=== PATIENT | male | born 1935 | race Caucasian/White ===

== ENCOUNTER 2017-04-17 17:03 | Observation (INO) ==
[2017-04-17] MEDS ORDERED: Aspirin 81 MG TAB.CHEW PO ONE (17:05)
--- NOTE | 2017-04-17 17:16 | Emergency Department Note ---
Disposition Clinical Impression: Chest pain Disposition: Admitted As Inpatient Condition: Good Forms: ED Satisfaction Letter Time of Disposition: 18:49 Chest Pain HPI - General Chief Complaint: ED Chest Pain Stated Complaint: Chest Pain Time Seen by Provider: 04/17/17 17:04 Source: patient, EMS Mode of arrival: EMS Limitations: no limitations Vital Signs Reviewed: Yes Nursing Notes Reviewed: Yes - History of Present Illness HPI Narrative: Patient presents to the ED as a transfer from the [place] for chest pain. Patient has a history of coronary artery disease and stents 3 with the last in 2006. Reports that for the last several months he has been having intermittent exertional and at rest chest pain. Was at a public services [employer] office today for pulmonary function testing, was on oxygen and when he got up to ambulate. He had a very intense, heavy pressure in the middle of his chest and got more short of breath. States this is consistent with his previous heart problems. Pain has been exertional and does go away with rest, but also happens at rest. Some diaphoresis, lightheaded, nausea. 2 baby aspirin were given at the [place] urgent care. EKG was read as normal. An initial troponin was 0.00. was given some nitro and it helped. pain 3/10 currently. - Related Data Allergies Allergy/AdvReac Type Severity Reaction Status Date / Time gabapentin Allergy See Verified 04/17/17 17:16 Comments niacin Allergy Hives Verified 04/17/17 17:16 Sulfa (Sulfonamide Allergy Rash Verified 04/17/17 17:16 Antibiotics) atorvastatin AdvReac See Verified 04/17/17 17:16 Comments fluvastatin AdvReac See Verified 04/17/17 17:16 Comments morphine AdvReac See Verified 04/17/17 17:16 Comments pravastatin AdvReac See Verified 04/17/17 17:16 Comments simvastatin AdvReac See Verified 04/17/17 17:16 Comments All systems ED: reviewed and negative except as stated. Constitutional: Reports: chills. Denies: fever Eyes: Denies: vision change Cardiovascular: Reports: chest pain, dyspnea on exertion. Denies: edema Respiratory: Reports: dyspnea Gastrointestinal: Denies: vomiting Musculoskeletal: Denies: back pain Physical Exam - General Limitations: no limitations General appearance: alert, in no apparent distress - Head Head exam: atraumatic, normocephalic, normal inspection - Eye Eye exam: Present: normal appearance, PERRL, EOMI - Chest Chest inspection: Present: normal inspection, symmetric chest wall rise - Respiratory Respiratory exam: Present: normal lung sounds bilaterally - Cardiovascular Cardiovascular exam: Present: regular rate, normal rhythm, normal heart sounds - Abdominal Exam Abdominal exam: Present: soft, Non-Tender. Absent: tenderness, distention, guarding, rebound, rigidity - Extremities Exam Extremities exam: Present: normal inspection, full ROM. Absent: tenderness, pedal edema - Neurological Exam Neurological exam: Present: alert, oriented X3, CN II-XII intact (stable, does have some facial droop from previous stroke. ), other (5/5 strength BUE/BLE) - Psychiatric Psychiatric exam: Present: normal affect, normal mood - Skin Skin exam: Present: warm, dry, intact, normal color Course Course Narrative: Patient with history of coronary artery disease, presenting for exertional chest pain. Initial troponin negative at [place]. Will repeat troponin and EKG here and admit - Reevaluation(s) Reevaluation #1: Radiology read. Chest x-ray here as possible pneumonia, clinically patient does not have pneumonia. Does have pulmonary fibrosis. Chest x-ray from the [place] when compared to his previous showed stable appearance. Patient actually refused antibiotics. He states that he is been placed been to many times for what looks like pneumonia on chest x-ray. He has been admitted for a chest pain rule out. Vital Signs Temperature 98 F 04/17/17 17:04 Pulse Rate 76 04/17/17 17:04 Respiratory Rate 20 04/17/17 17:04 Blood Pressure 166/96 04/17/17 17:04 O2 Sat by Pulse Oximetry 97 04/17/17 17:04 Temperature 98 F 04/17/17 17:04 Pulse Rate 80 04/17/17 18:28 Respiratory Rate 20 04/17/17 18:28 Blood Pressure 159/94 04/17/17 18:28 O2 Sat by Pulse Oximetry 95 04/17/17 18:28 Oxygen Delivery Oxygen Delivery Nasal Cannula Chest Pain - Medical Records Medical records reviewed: Yes I reviewed the patient's medical records. - Lab Data Lab results reviewed: Yes I reviewed the patient's lab results. Lab Results 04/17/17 Range/Units 17:34 Troponin I 0.00 (0-0.03) ng/mL - Radiology Data Radiology results reviewed: Yes I reviewed the patient's radiology results. Chest X-Ray 04/17/17 17:05 IMPRESSION: Left lower lobe opacities suspicious for pneumonia. D/ / 04/17/2017 17:39:44 Claude Celeste MD / wanda Interpreting Provider: Claude Celeste MD - EKG Data EKG attestation: Yes I reviewed and interpreted this EKG. EKG results narrative: Sinus rhythm, rate 92, para 192, QRS 108, QTC 46, normal axis, nonspecific T- wave changes that are unchanged from previous S.B.A.R. - S.B.A.R. Situation: Demographics, MOA Background: Presenting Complaint, Relevant PMH, Meds, & Allergies Assessment: Vital Signs, Course and respsone to treatment, Exam Concerns, Patient/Family Expectation, Pertinant Lab Results, Outstanding Labs Recommendation: Barrier(s) to disposition, Recommendation based on pending studies, treatments, or consults S.B.A.R. Report Given to: Dr. Epstein accepts S.B.A.R. Repor Time: 18:48 Attestation Statement - Attestation Attestation: I examined this patient and my medical decision-making was reviewed with the Resident Physician. I agree with the documented findings, disposition and treatment plan as described except to the extent set forth below. Patient to the ED with a chief complaint of chest pain. Patient is an avid smoker and episodes for a couple months. Today he had an episode where he felt like something was pushing on the center of his chest. Patient is initially coronary disease with stents placed 10 years ago. Feels better after nitroglycerin. Exam shows him in no acute distress lying in bed. Lungs clear. Plan. Cardiac workup and observation.
[2017-04-17] MEDS ORDERED: Nitroglycerin 0.4 MG TAB.SUBL SL PRN (17:23)
[2017-04-17] MEDS ORDERED: Azithromycin 500 MG in D5% in Water 250 ML IVPB ONE (18:19)
--- NOTE | 2017-04-17 19:54 | Internal Med History&Physical ---
Date of Encounter: 04/17/17 Time of Encounter: 19:53 Assessment and Plan (1) Angina pectoris Current visit: Yes Status: Acute in the setting of exertion and hypoxia from lung disease known CAD with 3 stents, last in 2006 - NG prn - ASA - Can't give statin due to allergies - Start metoprolol PO (unsure why he not on beta neal, no history of bradycardia or allergy) - Chec serial EKG/troponin, if LA, then start heparin gtt, give Plavix load - Cardiology consult - NPO in case cardiology recommends cath vs stress test - Check TTE (2) CAD (coronary artery disease) Current visit: Yes Status: Acute as above Qualifiers: Coronary Disease-Associated Artery/Lesion type: [place] artery [place] vs. transplanted heart: [place] heart Associated angina: with stable angina Qualified Code(s): I25.118 - Atherosclerotic heart disease of [place] coronary artery with other forms of angina pectoris (3) Pulmonary fibrosis Current visit: Yes Status: Acute Cont O2 by nc during day, BiPAP 10/6 at night Full code for now, will discuss with family regarding goals of care CXR opacity is likely pulm fibrosis. no S/S of PNA wven though he has leukocytosis - Recheck CBC in AM (4) HTN (hypertension) Current visit: Yes Status: Acute Hold Losartan due t hyperkalemia tonight - Recheck K in AM, and if normal, resume losartan Qualifiers: Hypertension type: essential hypertension Qualified Code(s): I10 - Essential (primary) hypertension (5) Diabetes mellitus Current visit: Yes Status: Acute controlled with TLC at baseline - check HbA1C Qualifiers: Diabetes mellitus type: type 2 Diabetes mellitus complication status: without complication Diabetes mellitus nursing home insulin use: without nursing home use Qualified Code(s): E11.9 - Type 2 diabetes mellitus without complications (6) Leukocytosis Current visit: Yes Status: Acute no s/s of infection - recheck CBC and clinically monitor Qualifiers: Leukocytosis type: other Qualified Code(s): D72.828 - Other elevated white blood cell count Internal Medicine - H&P: HPI Chief complaint: chest pain Admitted From: Emergency Dept Plans for Post Hospital Care: Home History of present illness: 82M came from [place], with CAD s/p PCI last stent in 2006 and oxygen dependent pulm fibrosis has been having anginal episodes for 2 months (14 episodes). Anterior chest pressure, radiating to left arm, with exertion, resolves by NG, lasts for 5 min. Of note, he is having worsening pulmonary function over the last 8 months , and GARIBAY is worsening. When he walks to the bathroom, O2 drops to 80's, HR increases and he develops chest pressure. Chronic cough with clear sputum. Some chills. Headache, nausea. Rhinorrhea. A 10 -point ROS is otherwise negative. PMH/PSH: - CAD, 3 stents, last in 2006 - CVA 2014 - DM2-controlled with TLC - ALAN - Pulm fibrosis, daytime O2 by [place], night time BiPAP 05/25 - Psoriatic arthritis on Enbrel - Hx LGIB - HTN - Gout - Partial colectomy SH: Lifelong non-smoker. No alcohol or drugs. FH: Mother-lymphoma Past Med Surg Social Fam HX - Past Medical History Medical history: cancer, coronary artery disease, CVA, diabetes, GERD, GI bleed , hyperlipidemia, hypertension, renal disease, TIA Psychiatric history: depression, other - Social History Smoking Status: Never smoker Smokeless Tobacco Status: No Alcohol use: none Drug use: none - Family History Father Name: Nolan Mireles Living Status: Age at : 66 Cause of : war wounds Internal Medicine - H&P: Meds Aspirin Enteric Coated [Aspirin EC] 81 mg PO DAILY 04/17/17 [History] Budesonide Neb [Pulmicort Neb] 0.5 mg IH DAILY 04/17/17 [History] Cholecalciferol (Vitamin D3) [Vitamin D3] 10,000 unit PO DAILY 04/17/17 [History ] Cinnamon Bark [Cinnamon] 500 mg PO DAILY 04/17/17 [History] Clopidogrel [Plavix] 75 mg PO DAILY 04/17/17 [History] Escitalopram [Lexapro] 20 mg PO DAILY 04/17/17 [History] Etanercept [Enbrel] 50 mg SQ QWEEK 04/17/17 [History] Famotidine [Pepcid] 20 mg PO BID 04/17/17 [History] Latanoprost [Xalatan] 1 drop LEFT EYE HS 04/17/17 [History] Losartan Potassium [Cozaar] 100 mg PO DAILY 04/17/17 [History] Magnesium Oxide [Magnesium] 400 mg PO DAILY 04/17/17 [History] Mometasone Furoate [Asmanex] 1 puff IH BID 04/17/17 [History] Ubidecarenone [Coenzyme Q10] 100 mg PO DAILY 04/17/17 [History] 3 Allergy/AdvReac Type Severity Reaction Status Date / Time gabapentin Allergy See Verified 04/17/17 17:16 Comments niacin Allergy Hives Verified 04/17/17 17:16 Sulfa (Sulfonamide Allergy Rash Verified 04/17/17 17:16 Antibiotics) atorvastatin AdvReac See Verified 04/17/17 17:16 Comments fluvastatin AdvReac See Verified 04/17/17 17:16 Comments morphine AdvReac See Verified 04/17/17 17:16 Comments pravastatin AdvReac See Verified 04/17/17 17:16 Comments simvastatin AdvReac See Verified 04/17/17 17:16 Comments All Systems PM: A 10-system review of systems was performed and is negative for pertinent findings except as documented above in the HPI. - Constitutional Vitals: Temp Pulse Resp BP Pulse Ox 98 F 80 20 159/94 95 04/17/17 17:04 04/17/17 18:28 04/17/17 18:28 04/17/17 18:28 04/17/17 18:28 General appearance: Present: A&O X 3, pleasant, no acute distress - Head Head exam: Present: atraumatic, normocephalic - Eye Eye exam: Present: PERRL, conjuntiva pink, sclera anicteric Pupils: Present: PERRL - Neck Neck exam general surgery: Present: supple, trachea midline. Absent: nuchal rigidity - Respiratory Respiratory exam: Present: rales (coarse bilateral velcro crackles). Absent: accessory muscle use, rhonchi, wheezes - Cardiovascular Cardiovascular exam: Present: RRR, +S1, +S2. Absent: diastolic murmur, gallop, rubs, systolic murmur - GI/Abdominal GI/Abdominal exam: Present: hernia, normal bowel sounds, soft, no peritoneal signs. Absent: distended, guarding, rebound, tenderness - Extremities Exam Extremities exam: Present: warm, radial pulses palpable and symmetrical. Absent : calf tenderness, cyanotic, pedal edema - Neurological Exam Neurological exam: Present: CN II-XII intact, oriented X3, no focal deficits. Absent: facial droop, speech deficit - Skin Skin exam: Present: dry, intact. Absent: rash Internal Med - H&P Results - EKG Data -: EKG Interpreted by Myself (Sinus 93 bpm, inferior Q waves, poor anterior R wave progression, QTc 462) - Impressions CXR: LLL opacity > RLL
[2017-04-17] MEDS ORDERED: Ondansetron 4 MG/2 ML VIAL IVP PRN (22:19)
[2017-04-17] MEDS ORDERED: GuaiFENesin Liq 200 MG/10 ML UDC PO PRN (22:46)
[2017-04-18 01:28] LABS: Basophils # 0.1 K/mcL (0.0-0.2); Basophils % 1.1 %; Eosinophils # 0.2 K/mcL (0.0-0.6); Eosinophils % 3.7 %; Hematocrit 46.1 % (37.5-50.1); Hemoglobin 15.2 g/dL (12.9-16.9); Immature Granulocytes % 0.5 % (0-4); Lymphocytes # 1.3 K/mcL (0.6-4.6); Lymphocytes % 22.6 %; Mean Corpuscular Hemoglobin 29.7 pg (28.0-33.3); Mean Corpuscular Volume 90.2 fL (83.0-100.0); Mean Platelet Volume 10.9 fL (9.4-12.4); Monocytes # 0.7 K/mcL (0.0-1.3); Monocytes % 12.5 %; Neutrophils # 3.4 K/mcL (1.6-8.9); Platelet Count 149 K/mcL (140-400); Red Blood Count 5.11 M/mcL (4.19-5.50); Red Cell Distribution Width 13.3 % (11.5-14.5); Segmented Neutrophils % 59.6 %
[2017-04-18 01:34] LABS: INR 1.1; Prothrombin Time 11.6 Seconds (9.4-12.1)
[2017-04-18 01:41] LABS: Hemoglobin A1C 5.5 %
[2017-04-18 01:46] LABS: Alanine Aminotransferase 14 Units/L (0-55); Albumin 3.3 g/dL (3.5-5.0); Albumin/Globulin Ratio 0.8 (1.1-2.2); Alkaline Phosphatase 55 Units/L (38-126); Aspartate Amino Transferase 16 Units/L (5-34); BUN/Creatinine Ratio 16 (6-26); Bilirubin,Total 0.7 mg/dL (0.2-1.2); Blood Urea Nitrogen 16 mg/dL (8-26); Carbon Dioxide 27 mEq/L (19-29); Chloride 106 mEq/L (98-109); Globulin 3.9 g/dL (2.4-3.5); Glucose 132 mg/dL (70-99); Osmolality,Calculated 291 (280-300); Potassium 3.8 mEq/L (3.5-4.5); Sodium 139 mEq/L (136-145); Total Protein 7.2 g/dL (6.0-8.3); eGFR For African Americans > 60 (> 60); eGFR For Non-African Americans > 60 (> 60)
[2017-04-18] MEDS: *HR* Heparin 5,000 UNIT/ML VIAL SQ SCH ×2 (05:09→15:50)
[2017-04-18] MEDS ORDERED: Magnesium Oxide 400 MG TABLET PO SCH (09:00)
[2017-04-18] MEDS ORDERED: Coenzyme Q10 100 MG PO SCH (09:00)
[2017-04-18] MEDS ORDERED: NON-FORMULARY MEDICATION 1 EACH EACH (Losartan Potassium [Cozaar] 100 MG) PO SCH (09:00)
[2017-04-18] MEDS ORDERED: Aspirin Enteric Coated 81 MG Tablet PO SCH (09:00)
[2017-04-18] MEDS ORDERED: Budesonide Neb 0.5 MG/2 ML IH SCH (09:00)
[2017-04-18] MEDS: Famotidine 20 MG TABLET PO SCH ×2 (09:42→15:53)
--- NOTE | 2017-04-18 09:53 | Internal Med Progress Note ---
Date of Encounter: 04/18/17 Time of Encounter: 09:00 - Assessment and plan (1) Chest pain Current Visit: Yes Status: Acute Assessment and plan: Patient has right-sided stabbing chest pain. Continue nothing by mouth status. Patient will undergo a pharmacological stress test today. Cardiac enzymes have been negative 3. EKG without acute ST-T changes that suggest unstable angina. Cancel cardiology consult for now. If the stress test is abnormal, will consult cardiology for a left heart catheterization. Qualifiers: Chest pain type: intercostal pain Qualified Code(s): R07.82 - Intercostal pain (2) COPD (chronic obstructive pulmonary disease) Current Visit: Yes Status: Chronic Assessment and plan: Continue breathing treatments. Stable. Qualifiers: COPD type: emphysema Emphysema type: unspecified Qualified Code(s): J43.9 - Emphysema, unspecified (3) Respiratory failure Current Visit: Yes Status: Chronic Assessment and plan: Continue oxygen supplementation. Qualifiers: Chronicity: chronic Respiratory failure complication: hypoxia Qualified Code(s): J96.11 - Chronic respiratory failure with hypoxia (4) CAD (coronary artery disease) Current Visit: Yes Status: Chronic Assessment and plan: As mentioned above, pharmacological stress test today. Continue beta neal, aspirin and Plavix. Hold statins due to allergies. Qualifiers: Coronary Disease-Associated Artery/Lesion type: [place] artery [place] vs. transplanted heart: [place] heart Associated angina: with unspecified angina Qualified Code(s): I25.119 - Atherosclerotic heart disease of [place] coronary artery with unspecified angina pectoris (5) Diabetes mellitus Current Visit: Yes Status: Chronic Assessment and plan: Continue home medications. Controlled blood sugars. On a sliding scale insulin. Qualifiers: Diabetes mellitus type: type 2 Diabetes mellitus complication status: with circulatory complication Diabetes mellitus complication detail: with other circulatory complications Diabetes mellitus shelter insulin use: without shelter use Qualified Code(s): E11.59 - Type 2 diabetes mellitus with other circulatory complications (6) HTN (hypertension) Current Visit: Yes Status: Chronic Assessment and plan: Controlled blood pressure. Continue current medications. Qualifiers: Hypertension type: essential hypertension Qualified Code(s): I10 - Essential (primary) hypertension (7) Pulmonary fibrosis Current Visit: No Status: Chronic - Subjective Interval history: Patient has been having on and off chest pain at rest over the past month. Yesterday, he went to [facility] for a breathing test. While he was doing the 6 minute walk test, the patient experienced sharp chest pain on the right side of his chest without radiation. This was relieved with nitroglycerin. Hence, he was transferred to [facility] for further evaluation. The patient states that he has had 4 stents in his heart. The last one was in 2006. He also reports shortness of breath with exertion. He repeats mild cough and wheezing. Currently, he reports that his chest pain is resolved. He denies any lightheadedness. He continues to report shortness of breath with exertion and palpitations with exertion. He denies having had a stress test since 2006 when he had stent placed. - Constitutional Vitals: Temp Pulse Resp BP Pulse Ox 97.5 F L 68 16 146/79 95 04/18/17 06:58 04/18/17 06:58 04/18/17 07:49 04/18/17 06:58 04/18/17 07:49 Exam: Gen.: Lying in bed. No acute distress. Chest: Reduced breath sounds bilaterally. No adventitious sounds heard. CVS: First and second heart sounds present. No murmurs, rubs or gallops. Abdomen: Soft, nontender, obese. Bowel sounds present. No hepatosplenomegaly. Skin: No decubitus ulcers appreciated. Internal Medicine: Result - Labs CBC & Chem 7: 04/18/17 00:51 04/18/17 00:51 Labs: Short CBC 04/18/17 Range/Units 00:51 WBC 5.7 (4.3-11.1) K/mcL Hgb 15.2 (12.9-16.9) g/dL Hct 46.1 (37.5-50.1) % Plt Count 149 (140-400) K/mcL Neutrophils # 3.4 (1.6-8.9) K/mcL BMP 04/18/17 00:51 Sodium 139 Potassium 3.8 Chloride 106 Carbon Dioxide 27 BUN 16 Creatinine 1.01 Glucose 132 H Calcium 10.0 Cardiac Enzymes 04/18/17 04/18/17 Range/Units 00:51 06:13 Troponin I 0.01 0.00 (0-0.03) ng/mL Liver Function 04/18/17 Range/Units 00:51 Total Bilirubin 0.7 (0.2-1.2) mg/dL AST 16 (5-34) Units/L ALT 14 (0-55) Units/L Alkaline Phosphatase 55 (38-126) Units/L Albumin 3.3 L (3.5-5.0) g/dL - ABG Interpretation ABG results: PT/INR, D-dimer PT 11.6 Seconds (9.4-12.1) 04/18/17 00:51 - VTE Documentation of Mechanical Device: Graduated compression elastic hosiery Consult Discharge Plan - Plan [facility]Primary Care Provider[facility] -
[2017-04-18] MEDS ORDERED: Beclomethasone 80mcg MDI IH SCH (10:00)
[2017-04-18] MEDS ORDERED: Regadenoson 0.4 MG/5 ML SYRINGE IVP ONE (11:11)
[2017-04-18] MEDS ORDERED: Perflutren Lipid Microsphere 1.3 ML in 0.9 % Sodium Chloride 8.7 ML IVP ONE (12:18)
--- NOTE | 2017-04-18 14:12 | Nuclear Medicine Stress Report ---
Regadenoson Nuclear Stress Name: Dawood Mireles Date of Study: 04/18/2017 Date: 1935 Ht: 72.0 in Medical Record#: [id number] Age: 82 Wt: 240.0 lb Gender: Male Order #: [id number] Location: [facility] Room: [facility] Supervising Provider: Figueroa Shankar CNP Reading Physician: Rama Gregorio DO Ordering Physician: Pako Ojeda MD Primary Care Physician: [facility] Stress Technologist: Vandana Martínez CIGARETTE MAKING MACHINE CATCHER, CCT Linux Architect: Diana Silva Indications: Shortness of breath Impression: Perfusion imaging was negative for ischemia or infarct. Pharmacologic ECG was negative for ischemia at the level of heart rate achieved. Gated EF = >70%. History: Hypertension Hypercholesteremia Prior PCI Stress Test Summary: Stress Test Type: Pharmacologic Regadenoson 0.4mg/5ml given IV Baseline Information: Initial Heart Rate: 78 Blood Pressure: 146/88 Stress Information: Test Terminated Due to (primary): As per protocol Maximum Blood Pressure: 164/82 Maximum Heart Rate: 96 Percent Maximum Heart Rate Achieved: 70 Double Product: [id number] METS Reached: 1 Symptoms: No chest symptoms Nuclear Summary: SPECT myocardial perfusion imaging using Tc99m Sestamibi given intravenously was performed at rest and following cardiac stress testing. The resting images were obtained following initial dose of 11 mCi. Following stress an additional dose of 35.5 mCi was given at peak exercise or 30 seconds post regadenoson infusion. Medication Given: Time Medication Dose Units Route Findings: Stress Note * Resting ECG demonstrated normal sinus rhythm with IVCD and nonspecific ST abnormalities. * Pharmacologic stress ECG is negative for ischemia at level of heart rate achieved. * No arrhythmias were noted during stress. * Patient had no chest pain during stress. Hemodynamic responses * Normal hemodynamic responses to pharmacologic stress. Gated EF > 70% * Gated EF > 70%. Left Ventricle * The left ventricle is not dilated. NORMALS * Normal wall motion. * Normal segmental perfusion in stress. * Normal Segmental Perfusion in rest. TID * No evidence of transient ischemic dilatation. Lung Uptake * There is no evidence of increase lung uptake. Updated by Rama Gregorio on 04/18/2017 2:03:22 PM electronically signed on 04/18/2017 2:04:14 PM with status of Final
[2017-04-18 15:26] VITALS: BP 144/85
--- NOTE | 2017-04-18 16:15 | Discharge Summary ---
Date of Encounter: 04/18/17 Time of Encounter: 09:00 - Discharge Diagnosis (1) Chest pain Priority: Primary Status: Resolved Qualifiers: Chest pain type: intercostal pain Qualified Code(s): R07.82 - Intercostal pain (2) COPD (chronic obstructive pulmonary disease) Priority: Secondary Status: Chronic Qualifiers: COPD type: emphysema Emphysema type: unspecified Qualified Code(s): J43.9 - Emphysema, unspecified (3) Respiratory failure Priority: Secondary Status: Chronic Qualifiers: Chronicity: chronic Respiratory failure complication: hypoxia Qualified Code(s): J96.11 - Chronic respiratory failure with hypoxia (4) CAD (coronary artery disease) Priority: Secondary Status: Chronic Qualifiers: Coronary Disease-Associated Artery/Lesion type: [place] artery [place] vs. transplanted heart: [place] heart Associated angina: with unspecified angina Qualified Code(s): I25.119 - Atherosclerotic heart disease of [place] coronary artery with unspecified angina pectoris (5) Diabetes mellitus Priority: Secondary Status: Chronic Qualifiers: Diabetes mellitus type: type 2 Diabetes mellitus complication status: with circulatory complication Diabetes mellitus complication detail: with other circulatory complications Diabetes mellitus buttermaker insulin use: without assisted use Qualified Code(s): E11.59 - Type 2 diabetes mellitus with other circulatory complications (6) HTN (hypertension) Priority: Secondary Status: Chronic Qualifiers: Hypertension type: essential hypertension Qualified Code(s): I10 - Essential (primary) hypertension (7) Pulmonary fibrosis Priority: Secondary Status: Chronic - Discharge Medications Home Medications: Aspirin Enteric Coated [Aspirin EC] 81 mg PO DAILY 04/17/17 [History] Budesonide Neb [Pulmicort Neb] 0.5 mg IH DAILY 04/17/17 [History] Cholecalciferol (Vitamin D3) [Vitamin D3] 10,000 unit PO DAILY 04/17/17 [History ] Cinnamon Bark [Cinnamon] 500 mg PO DAILY 04/17/17 [History] Clopidogrel [Plavix] 75 mg PO DAILY 04/17/17 [History] Escitalopram [Lexapro] 20 mg PO DAILY 04/17/17 [History] Etanercept [Enbrel] 50 mg SQ QWEEK 04/17/17 [History] Famotidine [Pepcid] 20 mg PO BID 04/17/17 [History] Latanoprost [Xalatan] 1 drop LEFT EYE HS 04/17/17 [History] Losartan Potassium [Cozaar] 100 mg PO DAILY 04/17/17 [History] Magnesium Oxide [Magnesium] 400 mg PO DAILY 04/17/17 [History] Mometasone Furoate [Asmanex] 1 puff IH BID 04/17/17 [History] Ubidecarenone [Coenzyme Q10] 100 mg PO DAILY 04/17/17 [History] Allergies/Adverse Reactions: 3 Allergy/AdvReac Type Severity Reaction Status Date / Time gabapentin Allergy See Verified 04/17/17 17:16 Comments niacin Allergy Hives Verified 04/17/17 17:16 Sulfa (Sulfonamide Allergy Rash Verified 04/17/17 17:16 Antibiotics) atorvastatin AdvReac See Verified 04/17/17 17:16 Comments fluvastatin AdvReac See Verified 04/17/17 17:16 Comments morphine AdvReac See Verified 04/17/17 17:16 Comments pravastatin AdvReac See Verified 04/17/17 17:16 Comments simvastatin AdvReac See Verified 04/17/17 17:16 Comments Procedures/tests Complete & Pending: Procedures Performed prior 72 hours Category Date Time Status NM anand perf SPECT multi [NM] Routine Exams 04/18/17 09:12 Taken EV echocardiogram Routine Y 04/18/17 07:47 Completed SP pharm nuclear stress Routine Y 04/18/17 09:11 Completed Date of admission: 04/17/17 18:48 [facility] care physician: [facility] Consults: 04/17/17 22:47 Consult to Respiratory Therapy [CONS] Routine Reason for Consult: Bipap 05/25 hs - pulm fibrosis Call Completed: No Discharging clinician: Pako Ojeda Anticipated date of discharge: 04/18/17 - Patient Status Disposition: Home, Self-Care Condition: Good Functional capacity at discharge: independent ambulation Overall status at discharge: patient is back to baseline - Discharge Instructions Follow Up With: [facility],PC[facility] [Primary Care Provider] - - Diet and Activity Activity: increase activity as tolerated, resume usual activities as tolerated Diet: diabetic diet, low fat, low cholesterol, low salt diet Hospital course: Mr. Mireles is a 82 year old male who was sent to [facility] ER from [place] due to chest pain on exertion during a 6-minute walk test. Due to his history of extensive coronary artery disease, he was admitted for ruling out acute coronary syndrome. His troponins were negative 3 and his EKG did not reveal any ischemic changes. Hence, he underwent pharmacological stress test. Stress test was negative for reversible ischemia. He also underwent an echocardiogram which revealed an ejection fraction of 60% with normal left and her size and systolic function. Mild diastolic dysfunction of the left ventricle was seen. Right regular size and function were normal. Hence, his chest pain was felt to be related to intercourse or pain. The patient has been qualified for home oxygen due to his hypoxia related to COPD and pulmonary fibrosis. As the patient's chest pain has resolved and as a stress test is negative for reversible ischemia, he has been deemed stable to be discharged home with outpatient cardiology follow-up. - Time Spent with Patient Total time spent providing and/or coordinating discharge services: - Constitutional Vitals: Temp Pulse Resp BP Pulse Ox 97.5 F L 82 16 144/85 97 04/18/17 15:25 04/18/17 15:25 04/18/17 15:25 04/18/17 15:25 04/18/17 15:34 General appearance: Present: A&O X 3, pleasant, no acute distress Exam: Gen.: Lying in bed. No acute distress. Chest: Clear to auscultation bilaterally. No adventitious sounds present. CVS: First and second heart sounds present. No murmurs, rubs or gallops. Abdomen: Soft, nontender, obese. Bowel sounds present. No hepatosplenomegaly. - VTE Documentation of Mechanical Device: Graduated compression elastic hosiery
--- NOTE | 2017-04-18 16:36 | Electrocardiograph Report ---
[place] [id number] Test Date: 2017-04-17 Pat Name: Dawood Mireles Department: [id number] Room: 2NE29 Gender: M [employer]: : [id number] Requested By: Gurjit Remy Order Number: [id number] Reading MD: Shante Carrasquillo Measurements Intervals [place] Rate: 92 P: 1 IA: 192 QRS: 11 QRSD: 108 T: 5 QT: 357 QTc: 406 Interpretive Statements SINUS RHYTHM NONSPECIFIC T-WAVE ABNORMALITY Electronically Signed On 04-18-2017 16:34:45 EDT by Shante Carrasquillo
[2017-04-18] MEDS ORDERED: Latanoprost 2.5 ML BOTTLE LEFT EYE SCH (21:00)
== END 2017-04-18 18:55 | disposition home or self-care (01) ==
LOC: 2NENU 17:03 → EMEROO 17:03 → 2NENU 20:26
PROVIDERS: ADMIT Internal Medicine; ATTEND Internal Medicine Sleep Medicine